=== PATIENT | female | born 1990 | race Caucasian/White ===

== ENCOUNTER 2024-03-22 20:27 | Emergency (ER) | payer OTHER, SELFPAY ==
[2024-03-22 20:27] VITALS: BMI 40.3
[2024-03-22 20:29] VITALS: BP 135/77
--- NOTE | 2024-03-22 21:24 | ED.GENMED ---
History of Present Illness
General
Chief Complaint: Throat Problem
Source: patient
Exam Limitations: none
Time Seen by Provider: 03/22/24 21:00
History of Present Illness
History of Present Illness:
This is a 33 year old female that comes in with c/o sore throat. States that she started with a tickle in her throat 3 days ago. States that today all she has done was sleep all day. States that she has difficulty swallowing as her throat is so
sore. States that yesterday she started vomiting and this made her throat worse. States that she has had fever with chills, chest discomfort, Slight SOB, nausea, vomiting, headache, dizziness. Denies abd pain, diarrhea, urinary burning.
Past History
Past History
ED Past Medical History: Asthma
ED Past Surgical History: Cholecystectomy and Other (Hernia)
Social History
Tobacco: Non-smoker
Alcohol: None
Personal:
Living: alone
Review of Systems
Review of Systems
All Other Systems: ROS reviewed and negative except as documented in HPI and ROS
Constitutional: Reports fever and chills
EENT: Reports sore throat
Respiratory: Reports trouble breathing (Slight); Denies cough
Cardiac: Reports chest pain
ABD/GI: Reports nausea and vomiting; Denies abdominal pain or diarrhea
: Denies dysuria, frequency or urgency
Musculoskeletal: Reports no symptoms
Skin: Reports no symptoms
Neurological: Reports dizzy and headache
Psychiatric: Reports no symptoms
Phy Exam
General Physical Exam
General Presentation: no apparent distress
General age: appears stated age
General Skin: warm and dry
General Habitus: obese
General Mental: alert
General Hydration: dry mucous membranes
ENT Exam
ENT Exam: TM's normal, neck supple and other (Pharynx slightly red, negative for any exudate)
Eye Exam
Eye Exam: EOMI
Cardiovascular Exam
Cardiovascular Exam: regular rate/rhythm, no edema, no murmur and normal peripheral pulses
Pulmonary Exam
Pulmonary Exam: lungs clear, no respiratory distress, no rales, chest non tender, no crackles, no rhonchi, no wheezing and no cough
Gastrointestinal Exam
Gastrointestinal Exam: normal bowel sounds, non tender, soft, no organomegaly, no pulsatile mass and non distended
Musculoskeletal Exam
Musculoskeletal Exam: full ROM and no edema
Skin Exam
Skin Exam: normal color, warm/dry, no rash and no petechia
Psychiatric Exam
Psychiatric Exam: normal mood/affect
Course
Orders/Labs/Results
Orders:
Orders
03/22/24 21:22
0.9% Sodium Chloride 1000 ml [Nss] 1,000 ml IV BOLUS
Acetaminophen [Tylenol] 1,000 mg PO NOW STA
Dexamethasone Sod Phosphate [Decadron] 20 mg IV NOW STA
Test Result ONCE
03/22/24 21:26
Electrocardiogram (*1) Urgent
Reason for Study: Chest Pain
EKG- Treatment ONCE
03/22/24 21:28
CR Chest - 2 Views Urgent
Comment:
Reason For Exam: SOB
03/22/24 21:34
COVID-19 Antigen Urgent
Source: Nasal Swab
Influenza A+B Rapid Molecular Urgent
DANIELLE Source: Nasal Swab
Specimen Description:
Rapid Strep Group A Urgent
DANIELLE Source: Throat/Pharynx
Specimen Description:
Date Specimen was Collected: 03/22/24
Time Specimen was Collected: 21:27
Throat Culture [Throat Culture, Comprehensive] Urgent
DANIELLE Source: Throat/Pharynx
Specimen Description:
Date Specimen was Collected: 03/22/24
Time Specimen was Collected: 21:27
03/22/24 21:39
Complete Blood Count/With Diff Urgent
Comprehensive Metabolic Panel Urgent
HCG, Serum Qualitative Screen Urgent
Monotest Urgent
Troponin I Urgent
03/22/24 22:00
Famotidine [Pepcid] 20 mg IV HS
Abnormal Lab Results
03/22/24
21:39
Hgb 11.9 L g/dL
(12.0-16.0)
Hct 35.7 L %
(37.0-47.0)
Chloride 97 L mmol/L
(98-107)
Glucose 102 H mg/dl
(70-99)
AST 50 H U/L
(14-36)
ALT 38 H U/L
(0-35)
03/22/24 21:39
03/22/24 21:39
H/H slightly low. Glucose nonfasting. AST/ALT mildly elevated. Troponin <0.012, HCG negative, [place] negative, COVID and Influenza negative, Strep throat positive.
Vital Signs
Initial and Last Documented VS:
Initial Vital Signs
Temp Pulse Resp BP Pulse Ox
103.3 F H 90 18 135/77 98
03/22/24 20:29 03/22/24 20:29 03/22/24 20:29 03/22/24 20:29 03/22/24 20:29
Last Documented Vital Signs
Temp Pulse Resp BP Pulse Ox
103.3 F H 90 18 121/65 96
03/22/24 20:29 03/22/24 20:29 03/22/24 20:29 03/22/24 22:00 03/22/24 22:15
MDM/Problems Addressed
Differential Diagnosis Includes:
[place], Strep throat. Viral syndrome
MDM/Problems Addressed:
This is a 33 year old female that comes in with c/o sore throat. States that this started 3 days ago with a tickle and know she feels she can hardly swallow. States that she started with vomiting yesterday and this made her throat worse.
Will check labs. ECG. chest x-ray. give IV fluids, Pain medication and medicate for her fever.
Back into see patient. Explained that she is negative for COVID, Influenza and mono. Her chest x-ray is normal. Rapid strep is positive. Will give patient IM injection for strep and discharge home. Encouraged patient to increase her water intake to
8-8oz glasses daily. Tylenol or Ibuprofen for pain. Follow up with the family doctor for recheck. Return with any concerns .
Chronic conditions affecting care:
NA
Acute Exacerbation and/or Progression of Chronic Illness:
NA
*Radiology
Radiology exam reviewed: preliminary read by ED provider (Chest- Negative for active disease. )
*Pulse Oximetry
Patient hypoxic: no
*EKG
Interpreted by ED Provider?: Yes
*Regulatory Compliance Director Interpretation
Rate: Regulatory Compliance Director- N/A
*Critical Care Note
Total Time (30-74mins, 75-104mins- exclusive of procedures): Not Applicable
ED Attending Note
-
Portions of this chart may have been created with voice recognition software.� Occasional wrong word or��sound alike� substitutions may have occurred due to the inherent limitations of voice recognition software.
Discharge Plan
Departure
Disposition: Home (Routine Discharge)
Date of Disposition: 03/22/24
Time of Disposition: 22:51
Patient with high blood pressure during this ER visit?: No
Condition: Good
Covid-19: Negative COVID-19
Discharge Problem:
Strep throat
Instructions: Strep Throat (DC)
Additional Instructions:
As discussed, you are negative for COVID, Influenza and [place]. Your chest x-ray is normal. Your are positive for strep throat. You have been given an IM injection here which is a one time dose to treat the strep throat. Please increase your water
intake to 8-8oz glasses daily. Tylenol or ibuprofen as needed for fever and pain. Follow up with the family doctor for recheck. IF YOU HAVE ANY OTHER CONCERNS PLEASE RETURN TO THE EMERGENCY ROOM.
Interventions
Interventions:
ED-EENT Assessment Last Done: 03/22/24 22:01
ED- Neurological Assessment Last Done: 03/22/24 22:01
ED- Pulmonary Assessment Last Done: 03/22/24 22:01
ED-Skin Assessment Last Done: 03/22/24 22:01
Discharge Date and Time
Print Language: [id number]
[2024-03-22] MEDS: TYLENOL 1000 MG PO (21:27)
[2024-03-22] MEDS: PEPCID 20 MG IV (21:43)
[2024-03-22] MEDS: DECADRON 20 MG IV (21:43)
[2024-03-22] MEDS: NSS 1000 IV (21:44)
[2024-03-22 21:46] VITALS: BP 125/71
[2024-03-22 21:47] LABS: % Basophils 0.6 % (0-2); % Eosinophils 2.3 % (0-6); % Immature Granulocytes 0.4 % (0-0.5); % Lymphocytes 27.8 % (20.5-51.1); % Neutrophils 60.9 % (42.2-75.2); Absolute Eosinophils 0.2 10^3/uL (0-0.7); Absolute Monocytes 0.6 10^3/uL (0.1-0.6); Absolute Neutrophils 4.3 10^3/uL (1.4-6.5); Hematocrit 35.7 % (37.0-47.0); Hemoglobin 11.9 g/dL (12.0-16.0); Mean Corp Hgb Conc. 33.3 g/dL (33.0-37.0); Mean Corpuscular Hgb 28.2 pg (27.0-31.0); Mean Corpuscular Volume 84.6 fL (81.0-99.0); Mean Platelet Volume 9.8 fL (7.4-10.4); Nucleated Red Blood Cells % 0 %; Platelet Count 205 10^3/uL (130-400); Red Blood Cell Count 4.22 10^6/uL (4.20-5.40); Red Cell Dist. Width 12.9 % (11.5-14.5)
[2024-03-22 22:00] VITALS: BP 121/65
[2024-03-22 22:06] LABS: COVID-19 Antigen Negative (Negative)
[2024-03-22 22:17] LABS: HCG, Serum Qualitative Screen Negative
[2024-03-22 22:18] LABS: Troponin I < 0.012 ng/ml
[2024-03-22 22:25] LABS: Monotest Negative (Negative)
[2024-03-22 22:32] LABS: ALT (SGPT) 38 U/L (0-35); AST (SGOT) 50 U/L (14-36); Albumin 4.3 g/dl (3.5-5.0); Alkaline Phosphatase 58 U/L (38-126); Blood Urea Nitrogen 9 mg/dl (7-17); Calcium 8.6 mg/dl (8.4-10.2); Carbon Dioxide 26 mmol/L (22-30); Chloride 97 mmol/L (98-107); Estimated Creatinine Clearance 94 ml/min; Glucose 102 mg/dl (70-99); Potassium 4.2 mmol/L (3.5-5.1); Sodium 135 mmol/L (135-145); Total Bilirubin 0.9 mg/dl (0.2-1.3); Total Protein 7.3 g/dl (6.3-8.2); eGFR > 60.00
[2024-03-22] MEDS: BICILLIN LA 1200000 UNITS IM (23:15)
== END 2024-03-22 23:31 | disposition home or self-care (01) ==
LOC: EMR 20:27
PROVIDERS: Clinical Nurse Specialist Family Health; EMERGENCY PHYSICIAN Emergency Medicine
DX: J02.0 Streptococcal pharyngitis (principal); J45.909 Unspecified asthma, uncomplicated; Z90.49 Acquired absence of other specified parts of digestive tract
CPT/HCPCS: 99283; 96374; 96375; 96361; 96372; 71046; 80053; 84484; 84703; 85025; 86308; 87070; 87502; 87811; 87880; 93005; J0561